=== PATIENT | female | born 1955 | race Caucasian/White ===

== ENCOUNTER → 2018-05-26 | Outpatient (CLI) | payer OTHER | LOC: BMCIMAGING 13:02 | PROVIDERS: ATTEND Internal Medicine | DX: Z13.820 Encounter for screening for osteoporosis (principal); M85.89 Other specified disorders of bone density and structure, multiple sites; Z78.0 Asymptomatic menopausal state; Z96.643 Presence of artificial hip joint, bilateral ==

== ENCOUNTER → 2018-07-12 | Outpatient (CLI) | payer OTHER | LOC: FIMAGING 07:26 | PROVIDERS: ATTEND Internal Medicine Gastroenterology | DX: K59.8 Other specified functional intestinal disorders (principal) ==